=== PATIENT | male | born 1965 | race Native Hawaiian/Other Pacific Islander ===

== ENCOUNTER 2018-03-23 05:36 | Inpatient (IN) | payer SELFPAY ==
[~2018-03-23] VITALS: Ht 188 cm; Wt 203.5 kg
[2018-03-23 07:33] LABS: Basophils # (auto) 0 uL; Basophils % (auto) 0.5 % (0.0-2.0); Eosinophils # (auto) 0.5 uL; Eosinophils % (auto) 7.1 % (0.0-7.0); Hematocrit 44.2 % (41.0-53.0); Hemoglobin 14.9 g/dL (13.5-17.5); Lymphocytes # (auto) 1.8 uL; Lymphocytes % (auto) 27.3 % (10.0-50.0); Mean Corpuscular Hemoglobin 28.9 pg (28.0-32.0); Mean Corpuscular Hgb Conc. 33.7 g/dL (32.0-36.0); Mean Corpuscular Volume 85.9 fL (80.0-100.0); Monocytes # (auto) 0.8 uL; Monocytes % (auto) 12.4 % (0.0-12.0); Neutrophils # (auto) 3.6 uL; Neutrophils % (auto) 52.7 % (37.0-80.0); Platelet Count (auto) 228 10^3/uL (140-450); Red Blood Cells 5.14 10^6/uL (4.5-5.90); Red Cell Distribution Width 14.5 % (11.8-14.3); White Blood Cell 6.8 10^3/uL (4.4-10.8)
[2018-03-23 07:45] LABS: INR 0.92 (0.9-1.15); Partial Thromboplastin Time 27.1 sec (23.78-33.04); Prothrombin Time 9.9 sec (9.27-12.13)
[2018-03-23 07:49] LABS: Urine WBC None Seen /hpf (0 - 3)
[2018-03-23 07:49] LABS: Albumin 3.6 g/dL (3.4-5.0); Calcium 8.8 mg/dL (8.5-10.1); Magnesium 2.2 mg/dL (1.6-2.6)
[2018-03-23 07:57] LABS: BUN/Creatinine Ratio 14.4; Bilirubin, Total 0.4 mg/dL (0.2-1.0); Total Protein 7.1 g/dL (6.4-8.2)
[2018-03-23 08:00] LABS: Urine Bacteria NONE SEEN /hpf (None Seen); Urine Blood Negative /uL (Negative); Urine Specific Gravity 1.006 (1.001-1.035)
[2018-03-23] MEDS ORDERED: MORPHINE SULFATE 4 MG/ML SYR/VIAL IV PRN ×2 (12:00)
[2018-03-23] MEDS ORDERED: ZOLPIDEM TARTRATE 5 MG TAB PO PRN (12:00)
[2018-03-23] MEDS ORDERED: ALUM & MAG HYDROX-SIMETH LIQ(MAALOX) 30 ML PO ONE (12:00)
[2018-03-23] MEDS ORDERED: ONDANSETRON HCL 4 MG/2 ML VIAL IV PRN (12:00)
[2018-03-23] MEDS ORDERED: LORazepam 0.5 MG TAB PO PRN (12:00)
[2018-03-23] MEDS ORDERED: ACETAMINOPHEN 325 MG TAB PO PRN (12:00)
[2018-03-23] MEDS ORDERED: NITROGLYCERIN 0.4 MG SL TAB SL PRN ×2 (12:00)
[2018-03-23] MEDS: SODIUM CHLOR 0.9% PF (SALINE LOCK) 10ML VIAL/SYR IV SCH ×2 (13:16→22:02)
[2018-03-23 14:55] VITALS: BP 127/75
[2018-03-23] MEDS ORDERED: MULTCAP45 PO (16:48)
[2018-03-23] MEDS ORDERED: DOCU-94 PO (16:48)
[2018-03-23 16:52] VITALS: BP_SYST 118; BP_SYST 129; BP_DIAS 70; BP_DIAS 96
[2018-03-23 20:00] VITALS: BP 119/58
[2018-03-23 20:29] VITALS: BP 127/75
[2018-03-23] MEDS: ATORVASTATIN 20 MG TAB PO SCH (21:56)
[2018-03-23] MEDS: ENALAPRIL MALEATE 2.5 MG TAB PO SCH (21:57)
[2018-03-23] MEDS: CARVEDILOL 3.125 MG TAB PO SCH (21:59)
[2018-03-23 23:09] VITALS: BP 119/58
[2018-03-24] MEDS: SODIUM CHLOR 0.9% PF (SALINE LOCK) 10ML VIAL/SYR IV SCH ×3 (05:12→21:16)
[2018-03-24 05:48] VITALS: BP 124/53
[2018-03-24 06:42] LABS: Basophils # (auto) 0 uL; Basophils % (auto) 0.4 % (0.0-2.0); Eosinophils # (auto) 0.5 uL; Eosinophils % (auto) 9.3 % (0.0-7.0); Hematocrit 44.4 % (41.0-53.0); Hemoglobin 14.6 g/dL (13.5-17.5); Lymphocytes # (auto) 1.5 uL; Lymphocytes % (auto) 28.4 % (10.0-50.0); Mean Corpuscular Hemoglobin 28.3 pg (28.0-32.0); Monocytes # (auto) 0.7 uL; Monocytes % (auto) 13.7 % (0.0-12.0); Neutrophils # (auto) 2.6 uL; Neutrophils % (auto) 48.2 % (37.0-80.0); Nucleated Red Blood Cells % 0.2 %; Platelet Count (auto) 240 10^3/uL (140-450); Red Blood Cells 5.16 10^6/uL (4.5-5.90); Red Cell Distribution Width 14.3 % (11.8-14.3); White Blood Cell 5.3 10^3/uL (4.4-10.8)
[2018-03-24 06:49] LABS: Albumin 3.4 g/dL (3.4-5.0); BUN/Creatinine Ratio 14.1; Calcium 8.5 mg/dL (8.5-10.1); Magnesium 2.3 mg/dL (1.6-2.6); Potassium 4.4 mmol/L (3.5-5.1)
[2018-03-24 06:53] LABS: Bilirubin, Total 0.6 mg/dL (0.2-1.0); Total Protein 6.9 g/dL (6.4-8.2)
[2018-03-24 09:00] VITALS: BP 110/61
[2018-03-24] MEDS: ENALAPRIL MALEATE 2.5 MG TAB PO SCH ×2 (09:24→21:15)
[2018-03-24] MEDS: DOCUSATE SOD 100 MG CAP PO SCH (09:24)
[2018-03-24] MEDS: CARVEDILOL 3.125 MG TAB PO SCH ×2 (09:25→21:15)
[2018-03-24] MEDS: ASPirin 81 mg TAB PO SCH (09:51)
[2018-03-24] MEDS: CLOPIDOGREL BISULFATE 75 MG TAB PO SCH (09:51)
[2018-03-24 13:00] VITALS: BP 114/64
[2018-03-24] MEDS ORDERED: IOHEXOL 350 MG/ML 100ML IJ ONE (14:52)
[2018-03-24 15:28] LABS: Alcohol, Urine < 3.0 mg/dL (0-5); Amphetamine Screen, Urine NEGATIVE (NEGATIVE); Barbiturate Scree,Urine NEGATIVE (NEGATIVE); Benzodiazephine Screen, Urine NEGATIVE (NEGATIVE); Cannabinoid Screen, Urine NEGATIVE (NEGATIVE); Cocaine Screen, Urine NEGATIVE (NEGATIVE); Opiate Scree,Urine NEGATIVE (NEGATIVE); Phencyclidine Screen, Urine NEGATIVE (NEGATIVE)
[2018-03-24 17:00] VITALS: BP 132/81
[2018-03-24 20:00] VITALS: BP 114/62
[2018-03-24] MEDS: ATORVASTATIN 20 MG TAB PO SCH (21:16)
[2018-03-24 21:33] VITALS: BP 114/62
[2018-03-25 05:00] VITALS: BP 129/60
[2018-03-25] MEDS: SODIUM CHLOR 0.9% PF (SALINE LOCK) 10ML VIAL/SYR IV SCH (05:02)
[2018-03-25 08:00] VITALS: BP 120/72
[2018-03-25 09:00] VITALS: BP 120/72
[2018-03-25] MEDS: DOCUSATE SOD 100 MG CAP PO SCH (10:24)
[2018-03-25] MEDS: ENALAPRIL MALEATE 2.5 MG TAB PO SCH (10:24)
[2018-03-25] MEDS: CLOPIDOGREL BISULFATE 75 MG TAB PO SCH (10:24)
[2018-03-25] MEDS: CARVEDILOL 3.125 MG TAB PO SCH (10:25)
[2018-03-25] MEDS: ASPirin 81 mg TAB PO SCH (10:25)
[2018-03-25 11:56] VITALS: BP 120/72
== END 2018-03-25 16:23 | disposition home or self-care (01) | DRG 204 ==
LOC: ER 05:38 → TELE 11:56 → TELE-EAST 14:47
PROVIDERS: ADMIT Internal Medicine; ATTEND Family Medicine
PROC: 5A09357 Assistance with Respiratory Ventilation, Less than 24 Consecutive Hours, Continuous Positive Airway Pressure (ICD-10-PCS; principal; 2018-03-23)
DX: R06.02 Shortness of breath (principal); I24.9 Acute ischemic heart disease, unspecified; Z68.43 Body mass index [BMI] 50.0-59.9, adult; R07.89 Other chest pain; G47.30 Sleep apnea, unspecified; E66.01 Morbid (severe) obesity due to excess calories; F12.90 Cannabis use, unspecified, uncomplicated; R53.1 Weakness; L30.9 Dermatitis, unspecified; Z87.891 Personal history of nicotine dependence; Z72.89 Other problems related to lifestyle
CPT/HCPCS: 36415; 36600; 70450; 71045; 71275; 80053; 80061; 80307; 81001; 82805; 83735; 83880; 84484; 85025; 85379; 85610; 85730; 93005; 93306; 94660; G0378